=== PATIENT | female | born 1945 | race Caucasian/White ===

== ENCOUNTER 2021-04-18 15:12 | Emergency (ER) | payer BC ==
[~2021-04-18] VITALS: Ht 152.4 cm; Wt 61.2 kg
--- NOTE | 2021-04-18 15:27 | NUR ---
[id number] C/O L SIDED FACIAL AND RADHIKA PAIN S/P TRIP AND FALL AT A PARKING LOT. DENIES KO. BREATHING IS EVEN AND UNLABORED.
--- NOTE | 2021-04-18 15:32 | NUR ---
DR MURPHY AT BEDSIDE
--- NOTE | 2021-04-18 15:43 | NUR ---
X RAY AT BEDSIDE
--- NOTE | 2021-04-18 16:54 | NUR ---
Patient discharged to home in stable condition. Written and verbal after care instructions given. Patient verbalizes understanding of instruction.
[2021-04-18 17:44] VITALS: BP 136/85
== END 2021-04-18 17:46 | disposition home or self-care (01) ==
LOC: ER 15:16
DX: S01.81XA Laceration without foreign body of other part of head, initial encounter (principal); S40.012A Contusion of left shoulder, initial encounter; I10 Essential (primary) hypertension; E11.9 Type 2 diabetes mellitus without complications; Z88.5 Allergy status to narcotic agent; W01.0XXA Fall on same level from slipping, tripping and stumbling without subsequent striking against object, initial encounter; Y93.89 Activity, other specified; Y92.89 Other specified places as the place of occurrence of the external cause; Y99.8 Other external cause status
CPT/HCPCS: 73030-TC

== ENCOUNTER 2022-10-21 09:29 | Emergency (ER) | payer BC ==
[~2022-10-21] VITALS: Ht 152.4 cm; Wt 58.1 kg
--- NOTE | 2022-10-21 09:32 | NUR ---
PATIENT CAME TO EMERGENCY DEPARTMENT WITH COMPLAINTS OF INJURIES ON RT EYE,NOSE BRIGDGE AND UPPER LIP AFTER A FALL.ALERT AND ORIENTED*4.ON ROOM AIR.ATTACHED TO INVESTMENT EXECUTIVE AND PULSE OXYMETER.CHANGED TO HOSPITAL GOWN.AWAITING MD FOR EVALUATION.
--- NOTE | 2022-10-21 09:33 | NUR ---
DR CARTER AT BED SIDE FOR PATIENT EVALUATION.
--- NOTE | 2022-10-21 09:51 | NUR ---
PATIENT WENT TO RADIOLOGY FOR CT SCAN
--- NOTE | 2022-10-21 10:06 | NUR ---
PATIENT BACK FROM RADIOLOGY DEPARTMENT.
--- NOTE | 2022-10-21 11:49 | NUR ---
PER DR CARTER INSTRUCTION DISCHARGE PAPER GIVEN TO PATIENT
--- NOTE | 2022-10-21 11:51 | NUR ---
Patient discharged to home in stable condition. Written and verbal after care instructions given. Patient verbalizes understanding of instruction.
[2022-10-21 11:53] VITALS: BP 106/64; TEMP 98.3; O2SAT 96
== END 2022-10-21 11:53 | disposition home or self-care (01) ==
LOC: ER 09:39
DX: S00.83XA Contusion of other part of head, initial encounter (principal); I10 Essential (primary) hypertension; E11.9 Type 2 diabetes mellitus without complications; Z88.5 Allergy status to narcotic agent; W18.39XA Other fall on same level, initial encounter; Y93.89 Activity, other specified; Y92.89 Other specified places as the place of occurrence of the external cause; Y99.8 Other external cause status
CPT/HCPCS: 70450-TC